=== PATIENT | male | born 1970 | race Two or more races ===

== ENCOUNTER 2022-07-12 16:47 | Emergency (ER) | payer OTHER ==
[~2022-07-12] VITALS: Ht 172.7 cm; Wt 81.2 kg
--- NOTE | 2022-07-12 17:00 | NUR ---
[id number] HOME C/O CHEST PAIN, EVERYDAY WORSTS SINCE THIS MORNING. PRESCRIBED DILAUDID NOT HELPING. PLACED IN BED, AAOX4, UNLABORED BRETHING SATURATING AT 96%RA, ATTACHED TO MINITOR SHOWS SINUS TACH. HI- 114, IN PAIN 8/10 PS.
--- NOTE | 2022-07-12 17:08 | NUR ---
BLOOD DRAWN AND SENT TO LAB
[2022-07-12 17:40] LABS: BASOPHILS % (AUTO) 0.5 % (0.0-2.0); EOSINOPHILS % (AUTO) 2.3 % (0.0-6.0); HEMATOCRIT 46 % (39-51); HEMOGLOBIN 14.7 g/dL (13.5-17.5); LYMPHOCYTES # (AUTO) 1.1 K/uL (0.8-4.8); LYMPHOCYTES % (AUTO) 17.8 % (20.0-44.0); MEAN CORPUSCULAR HGB CONC 32 g/dl (31.0-36.0); MEAN CORPUSCULAR VOLUME 86 fL (80-96); MONOCYTES # (AUTO) 0.2 K/uL (0.1-1.30); MONOCYTES % (AUTO) 3.8 % (2.0-12.0); NEUTROPHILS # (AUTO) 4.8 K/uL (1.8-8.9); NEUTROPHILS % (AUTO) 75.6 % (43.0-81.0); PLATELET COUNT (AUTO) 373 K/uL (150-450); RED BLOOD CELL COUNT(AUTO) 5.37 MIL/uL (4.5-6.0); WHITE BLOOD COUNT (AUTO) 6.4 K/uL (4.3-11.0)
[2022-07-12 17:48] LABS: CALCIUM, SERUM 9.2 mg/dL (8.5-10.1); CARBON DIOXIDE 20 mmol/L (21-32); CHLORIDE 103 mmol/L (98-107); CREATININE 0.9 mg/dL (0.6-1.3); GLUCOSE 121 mg/dL (74-106); POTASSIUM 4.3 mmol/L (3.5-5.1); SODIUM SERUM 137 mmol/L (136-145); UREA NITROGEN, BLOOD 10 mg/dL (7-18)
--- NOTE | 2022-07-12 18:30 | NUR ---
MOVE SHEET SUBMITTED.
--- NOTE | 2022-07-12 18:38 | NUR ---
CALLED [facility] [phone] DR. KENDRICK WILL CALL DR. BARRERA BACK.
[2022-07-12] MEDS ORDERED: ASPIRIN 81 MG TAB.CHEW ONE (18:53)
[2022-07-12] MEDS ORDERED: HYDROCODONE/APAP 10/325MG TABLET ONE (18:53)
[2022-07-12] MEDS ORDERED: ASPIRIN 81 MG TAB.CHEW PO ONE (19:00)
[2022-07-12] MEDS ORDERED: IV NS 0.9% 1,000 ML BAG IV ONE (19:00)
[2022-07-12] MEDS ORDERED: HYDROCODONE/APAP 10/325MG TABLET PO ONE (19:00)
--- NOTE | 2022-07-12 19:12 | NUR ---
PT GOING TO [facility]. DR. CRISTAL ALONZO. CALL [phone] TO GIVE REPORT. ALS TRANSPORT WITH [facility] P/U [id number].
--- NOTE | 2022-07-12 19:33 | NUR ---
report given to Carlos RN to continue care.
[2022-07-12 19:54] VITALS: BP 132/92
--- NOTE | 2022-07-12 20:45 | NUR ---
PATIENT PICKUP BY [facility] [address] [facility]. STAFF AND REPORT WAS GIVEN FOR TRANSFER TO [facility].
== END 2022-07-12 20:47 | disposition short-term general hospital (02) ==
LOC: ER 16:50
DX: R07.89 Other chest pain (principal)
CPT/HCPCS: 36415; 71045-TC; 80048-TC; 84484-TC; 85025-TC; 85378-TC